=== PATIENT | female | born 1950 ===

== ENCOUNTER 2022-10-17 06:03 | Day surgery (SDC) | payer OTHER ==
[~2022-10-17] VITALS: Ht 157.5 cm; Wt 66.2 kg
[~2022-10-17 06:03] MED LIST: ALTACE2.5 MG PO; CHILDREN'S ASPI81 MG PO; LIPITOR40 MG PO; METFORMIN HCL500 M3 PO; PAXIL20 MG PO
[2022-10-17] MEDS ORDERED: OXYC1TAB9 PO (11:17)
== END 2022-10-17 16:45 | disposition home or self-care (01) ==
LOC: CIR.AMB 06:03
PROVIDERS: ATTEND Surgery
DX: K62.0 Anal polyp (principal); K62.1 Rectal polyp; K62.5 Hemorrhage of anus and rectum; K62.89 Other specified diseases of anus and rectum; K64.8 Other hemorrhoids; K64.4 Residual hemorrhoidal skin tags; Z20.822 Contact with and (suspected) exposure to COVID-19; I10 Essential (primary) hypertension